=== PATIENT | female | born 1970 | race Caucasian/White ===

== ENCOUNTER 2017-01-11 18:21 | Emergency (ER) | payer SELFPAY ==
--- NOTE | 2017-01-13 19:25 | ER ---
ADMIT: 01/11/2017 RM/LOC: ER [facility] MR#: [id number] [address] [id number] [address] [place] [id number] Emergency Room Report SEX: F AGE: 46 : 1970 DATE: 01/11/2017 ADDENDUM: CHIEF COMPLAINT: Anxiety, depression. HISTORY OF PRESENT ILLNESS: This is a 46-year-old, who has a history of seizures, depression, and anxiety. She sees [facility] for her medications. She is to be on clonazepam, last time she had a prescription for was 3 months ago. Recently, she has just come down with a lot of stress with legal, financial, and health issues. She has been very hard on her. All she is seeking is some clonazepam just to help with the stress until she sees [facility] on Sunday. DISPOSITION: I am sending her home with clonazepam 0.5 mg dispensing #5 tablets for her for the next 5 nights having her only take to help her sleep and follow up with [facility] on Sunday. CLINICAL IMPRESSION: Anxiety, depression. JUAQUIN Brown / Mann Romero MD / karin JOB #: [id number] CC: Mann Romero MD, Attending Physician [facility] NP, Family Physician
== END 2017-01-11 18:59 | disposition home or self-care (01) ==
LOC: ER 18:21
DX: F41.1 Generalized anxiety disorder (principal); F32.9 Major depressive disorder, single episode, unspecified; G40.909 Epilepsy, unspecified, not intractable, without status epilepticus; F17.210 Nicotine dependence, cigarettes, uncomplicated; Z79.899 Other long term (current) drug therapy

== ENCOUNTER 2017-01-21 22:57 | Emergency (ER) | payer SELFPAY ==
--- NOTE | 2017-01-22 11:12 | NUR ---
Received SAD person referral. Pt was [facility]'d to [facility].
--- NOTE | 2017-01-23 09:10 | ER ---
ADMIT: 01/21/2017 RM/LOC: ER [facility] MR#: [id number] [address] [facility] [address] [place], [place] [id number] [address] [place] [address] Emergency Room Report SEX: F AGE: 46 : 1970 DATE: 01/21/2017 TIME: 2256 Please refer to my T-sheet for complete H and P. HISTORY OF PRESENT ILLNESS: Briefly, the patient is a 46-year-old who was brought in by an acquaintance, when they discovered she overdosed. She said she took eight 1 mg clonazepam and a handful of 200 mg Lamictal, she said about 3 hours prior to arrival in the emergency department. She has not been vomiting. She has been upset. She is depressed. She states she just wants to go away, she states everything. She has a known history of depression. She has been at [facility] before. PHYSICAL EXAMINATION: VITAL SIGNS: Blood pressure 129/93, pulse 89, respirations 11, temp 97.5, saturating 98%. GENERAL: She is anxious. HEENT: Grossly normal. LUNGS: Clear. HEART: Regular. ABDOMEN: Soft. NEURO: She is very confrontational, very depressed mood. She does say about 3 times that she wanted to kill herself. EMERGENCY DEPARTMENT COURSE: We did EPC labs. CBC was normal except hemoglobin 11.8, ETOH is negative. Tox is positive for amphetamines, otherwise normal. The chemistries were all normal. Tylenol was negative. EtOH was negative. TSH was normal. We talked to Poison Control. We watched her to the point of about 5 hours post ingestion, she had no episodes of somnolence, no episodes of bradycardia, which were 2 concerns after discussion with Poison Control. We backed into the medications that she could have overdosed on. She said that it was eight 1 mg clonazepam and she said a handful of Lamictal. She had a bottle that was filled 60 days ago with 180 of them, there were 123 left in the bottle, so that means 57 were gone. According to what she is supposed to be taking and she said she has been ADMIT: 01/21/2017 RM/LOC: ER [facility] MR#: [id number] [address] [facility] [address] [place] [id number] [address] [place] [address] Emergency Room Report SEX: F AGE: 46 : 1970 taking it normal, she should have had 60 gone, so she actually has 3 less gone that she should have had gone according to what she was taking. Either way, she said she did take some, but it does not seem like it is going to be a significant dose. I accept her at [facility], she will be transferred by police. ASSESSMENT: 1. Intentional overdose. 2. Recurrent depression. 3. Suicidal ideation. PLAN: Transfer to [facility]. Mann Romero MD/ karin JOB #: [id number] CC: Charli Gaspar MD, Attending Physician [facility] NP, Family Physician
== END 2017-01-22 02:55 ==
LOC: ER 22:57
DX: T42.4X2A Poisoning by benzodiazepines, intentional self-harm, initial encounter (principal); T42.6X2A Poisoning by other antiepileptic and sedative-hypnotic drugs, intentional self-harm, initial encounter; F33.9 Major depressive disorder, recurrent, unspecified; F17.210 Nicotine dependence, cigarettes, uncomplicated; G40.909 Epilepsy, unspecified, not intractable, without status epilepticus; Z90.710 Acquired absence of both cervix and uterus; Z79.899 Other long term (current) drug therapy